=== PATIENT | male | born 1985 | race African-American/Black ===

== ENCOUNTER 2018-12-28 17:56 | Emergency (ER) | payer MEDICAID, OTHER ==
--- NOTE | 2018-12-28 18:23 | ED ---
Influenza-Like Illness - HPI Summary HPI Summary: A 33 y/o male presents to [facility] with a chief complaint of flu like symptoms since yesterday. He reports that three days ago he had a fever, sore throat and felt fatigued. Yesterday he took a bus from [facility] to [place] and when he got home he was sweating with chills and had a worsened sore throat. Today he had some nausea but denies vomiting or SOB. He also notes that his stool has been red but is formed since eating steak. He is unsure if he has muscle aches because he thinks he is sore from exercising a few days ago. - History of Current Complaint Chief Complaint: EDFluSymptoms Time Seen by Provider: 12/28/18 18:13 Hx Obtained From: Patient Onset/Duration: Sudden Onset, Lasting Days, Still Present Severity: Moderate Associated Signs & Symptoms: Fever - Allergy/Home Medications Allergies/Adverse Reactions: Allergies Allergy/AdvReac Type Severity Reaction Status Date / Time No Known Allergies Allergy Verified 12/28/18 18:26 Home Medications: Home Medications NK [No Home Medications Reported] 12/28/18 [History Confirmed 12/28/18] PMH/Surg Hx/FS Hx/Imm Hx Endocrine/Hematology History: Denies: Hx Diabetes Cardiovascular History: Denies: Hx Hypertension Sensory History: Denies: Hx Deafness EENT History: Denies: Hx Deafness Infectious Disease History: No Infectious Disease History: Denies: Traveled Outside the [place] in Last 30 Days - Family History Known Family History: Negative: Blood Disorder - Social History Alcohol Use: Occasionally Hx Substance Use: No Substance Use Type: Reports: None Hx Tobacco Use: No Smoking Status (MU): Never Smoked Tobacco Type: Pipe Review of Systems Positive: Fever - 100.3 at triage, Chills, Fatigue, Skin Diaphoresis Positive: Sore Throat Negative: Shortness Of Breath All Other Systems Reviewed And Are Negative: Yes Physical Exam - Summary Physical Exam Summary: Appearance: Well-appearing, Well-nourished, lying in bed comfortably, fever noted Skin: Warm, dry, no obvious rash Eyes: sclera anicteric, no conjunctival pallor ENT: mucous membranes moist, pharynx appears normal Neck: Supple, nontender Respiratory: Clear to auscultation, no signs of respiratory distress Cardiovascular: Normal S1, S2. No murmurs. Normal distal pulses in tibial and radial bilaterally. Abdomen: Soft, nontender, normal active bowel sounds present Musculoskeletal: Normal, Strength/ROM Intact Neurological: A&Ox3, awake and alert, mentation is normal, speech is fluent and appropriate Psychiatric: affect is normal, does not appear anxious or depressed Triage Information Reviewed: Yes Vital Signs On Initial Exam: Initial Vitals Temp Pulse Resp BP Pulse Ox 100.3 F 100 18 132/84 97 12/28/18 17:57 12/28/18 17:57 12/28/18 17:57 12/28/18 17:57 12/28/18 17:57 Vital Signs Reviewed: Yes Diagnostics - Vital Signs Vital Signs Temp Pulse Resp BP Pulse Ox 12/28/18 17:57 100.3 F 100 18 132/84 97 - Laboratory Lab Statement: Any lab studies that have been ordered have been reviewed, and results considered in the medical decision making process. Flu Symptom Course/Dx - Course Course Of Treatment: A 33 y/o male presents to [facility] with a chief complaint of flu like symptoms since yesterday. He reports that three days ago he had a fever , sore throat and felt fatigued. Yesterday he took a bus from [facility] to [place] and when he got home he was sweating with chills and had a worsened sore throat. Today he had some nausea and no vomiting. The physical exam revealed that the patient was febrile. The patient tested negative for influenza A and influenza B and Group A Strep. The patient will be discharged home and follow up with his PCP. He is agreeable with this plan. - Diagnoses Provider Diagnoses: Viral pharyngitis Discharge - Sign-Out/Discharge Documenting (check all that apply): Patient Departure - DC Patient Received Moderate/Deep Sedation with Procedure: No - Discharge Plan Condition: Good Disposition: HOME Patient Education Materials: Pharyngitis (ED), Fever in Adults (ED) Referrals: [facility] [Outside] - Billing Disposition and Condition Condition: GOOD Disposition: Home - Attestation Statements Document Initiated by Scribe: Yes Documenting Scribe: Andreas Madera Provider For Whom Scribe is Documenting (Include Credential): Fredy Longo MD Scribe Attestation: Andreas Knox, scribed for Fredy Longo MD on 12/30/18 at 1044. Scribe Documentation Reviewed: Yes Provider Attestation: The documentation as recorded by the scribe, Andreas Madera accurately reflects the service I personally performed and the decisions made by me, Fredy Longo MD Status of Scribe Document: Viewed
[2018-12-28 18:57] LABS: Influenza A Molecular NEGATIVE (Negative); Influenza B Molecular NEGATIVE (Negative)
[2018-12-28 20:09] LABS: Rapid Strep Molecular Negative (Negative)
[2018-12-28 20:19] VITALS: BP 119/81
== END 2018-12-28 20:18 | disposition home or self-care (01) ==
LOC: ED 17:56
DX: J02.8 Acute pharyngitis due to other specified organisms (principal)
CPT/HCPCS: 87651; 99282